=== PATIENT | female | born 1980 | race Caucasian/White ===

== ENCOUNTER 2017-12-02 09:03 | Day surgery (SDC) | payer MEDICAID ==
[2017-11-29 14:19] LABS: BASOPHILS % (AUTO) 0.4 % (0.0-2.0); EOSINOPHILS % (AUTO) 0.9 % (1.0-6.0); HEMATOCRIT 38.3 % (36-46); HEMOGLOBIN 13.1 g/dL (12.0-16.0); LYMPHOCYTES # (AUTO) 2.1 K/uL (1.0-4.8); LYMPHOCYTES % (AUTO) 23.2 % (22.0-44.0); MEAN CORPUSCULAR HEMOGLOBIN 28.1 pg (26.0-34.0); MEAN CORPUSCULAR HGB CONC 34.1 G/dL (31.0-37.0); MEAN CORPUSCULAR VOLUME 82 fL (80-100); MONOCYTES # (AUTO) 0.3 K/uL (0.1-1.0); MONOCYTES % (AUTO) 3.7 % (2.0-9.0); NEUTROPHILS # (AUTO) 6.6 K/uL (1.8-7.7); NEUTROPHILS % (AUTO) 71.8 % (40.0-70.0); PLATELET COUNT (AUTO) 217 K/uL (150-450); RED BLOOD CELL COUNT(AUTO) 4.66 MIL/uL (4.00-5.20)
[2017-11-29 14:34] LABS: ALANINE AMINOTRANSFERASE 12 U/L (12-78); ALBUMIN 3.3 g/dL (3.4-5.0); ALKALINE PHOSPHATASE 66 U/L (46-116); ANION GAP 6 mmol/L (8-16); ASPARTATE AMINOTRANSFERASE 13 U/L (15-37); BILIRUBIN,TOTAL 0.4 mg/dL (0.1-1.0); CALCIUM, TOTAL 8.2 mg/dL (8.8-10.5); CARBON DIOXIDE 27 mmol/L (22-29); CHLORIDE 105 mmol/L (98-107); CREATININE 0.76 mg/dL (0.60-1.30); GLOMERULAR FILTR. RATE CALC > 60 mL/min (>60); GLUCOSE,RANDOM 96 mg/dL (70-110); SODIUM SERUM 138 mmol/L (136-145); TOTAL PROTEIN, SERUM 6.1 g/dL (6.4-8.2); UREA NITROGEN, BLOOD 15 mg/dL (7-18)
[~2017-12-02] VITALS: Ht 172.7 cm; Wt 110.5 kg
[~2017-12-02 09:03] MED LIST: BUPIVACAINE HCL/PF 0.5% 30 ML VIAL ONE; CefoTEtan DISOD 2 GM/DEXTROSE 50 ML IV ONE; DEXTROSE IV ONE; GUM MASTIC/STORAX/MSAL/ALCOHOL LIQUID 0.67 ML VIAL TP ONE; LIDOCAINE HCL 2%/EPI 1:200,000/PF 20 ML VIAL ONE; RINGERS SOLUTION,LACTATED 1,000 ML IV ONE; SODIUM CHLORIDE 0.9% 1,000 ML IV ONE; [UNRECOGNIZED DRUG - OTHER] IV ONE
[2017-12-02] MEDS ORDERED: MIDAZOLAM HCL 2 MG/2 ML VIAL IVP ONE (09:04)
[2017-12-02] MEDS ORDERED: NEOSTIGMINE METHYLSULFATE 1 MG/ML 10 ML VIAL IVP ONE (09:04)
[2017-12-02] MEDS ORDERED: GLYCOPYRROLATE 0.2 MG/ML VIAL IM ONE (09:04)
[2017-12-02] MEDS ORDERED: ONDANSETRON HCL 4 MG/2 ML VIAL IVP ONE (09:04)
[2017-12-02] MEDS ORDERED: CefoTEtan DISODIUM 1 GM/VIAL IVP ONE (09:04)
[2017-12-02] MEDS ORDERED: ROCURONIUM BROMIDE 10 MG/ML 5 ML VIAL IVP ONE (09:04)
[2017-12-02] MEDS ORDERED: FentaNYL CITRATE-PF 100 MCG/2 ML VIAL IVP ONE (09:04)
[2017-12-02] MEDS ORDERED: PROPOFOL 1% 20 ML VIAL IVP ONE (09:04)
[2017-12-02] MEDS ORDERED: KETOROLAC TROMETHAMINE 60 MG/2 ML VIAL IM ONE (09:04)
[2017-12-02] MEDS ORDERED: LIDOCAINE HCL/PF 2% 5 ML VIAL IM ONE (09:04)
[2017-12-02] MEDS ORDERED: METOCLOPRAMIDE HCL 5 MG/ML 2 ML VIAL IVP ONE (09:04)
[2017-12-02] MEDS ORDERED: DEXAMETHASONE SOD PHOS 4 MG/ML VIAL IVP ONE (09:04)
[2017-12-02] MEDS ORDERED: CefoTEtan DISOD 2 GM/DEXTROSE 50 ML IV ONE (10:29)
[2017-12-02] MEDS ORDERED: ACETAMINOPHEN 1000 MG/ISO-OSM 100 ML IV ONE (11:06)
[2017-12-02] MEDS ORDERED: ACETAMINOPHEN 500 MG TABLET PO PRN (11:45)
[2017-12-02] MEDS ORDERED: HYDROCODONE/ACETAMINOPHEN 5-325 MG TABLET PO PRN (11:45)
[2017-12-02] MEDS ORDERED: IBUPROFEN 800 MG TABLET PO PRN (11:45)
[2017-12-02] MEDS ORDERED: FentaNYL CITRATE-PF 100 MCG/2 ML VIAL ONE ×2 (11:52→12:35)
[2017-12-02] MEDS: FentaNYL CITRATE-PF 100 MCG/2 ML VIAL IVP PRN ×3 (11:58→12:38)
[2017-12-02] MEDS ORDERED: MEPERIDINE HCL/PF 25 MG/0.5 ML AMP IVP PRN (12:00)
[2017-12-02] MEDS ORDERED: HYDROmorphone 2 MG/ML SYRINGE ONE (12:03)
[2017-12-02] MEDS: HYDROmorphone 2 MG/ML SYRINGE IVP PRN ×4 (12:04→12:54)
[2017-12-02] MEDS ORDERED: RINGERS SOLUTION,LACTATED 1,000 ML IV ONE (12:06)
[2017-12-02] MEDS ORDERED: HYDROCODONE/ACETAMINOPHEN 5-325 MG TABLET ONE (13:38)
[2017-12-02] MEDS ORDERED: OXYGEN THERAPY IH SCH (20:00)
== END 2017-12-02 14:20 | disposition home or self-care (01) ==
LOC: SURGERY 09:03
PROVIDERS: ATTEND Surgery
DX: K80.10 Calculus of gallbladder with chronic cholecystitis without obstruction (principal); M79.7 Fibromyalgia; G89.29 Other chronic pain; E66.9 Obesity, unspecified; Z90.49 Acquired absence of other specified parts of digestive tract; Z98.890 Other specified postprocedural states; Z68.37 Body mass index [BMI] 37.0-37.9, adult
CPT/HCPCS: 36415; 47562; 80053; 84703; 85025; 88304; J0131; J1100; J1170; J1885; J2250; J2405; J2704; J2765; J3010; J3490 ×6; J7030; J7120

== ENCOUNTER → 2018-02-28 | Outpatient (CLI) | payer OTHER ==
[2018-03-01 11:22] LABS: RUBEOLA (MEASLES) IGG 84.7 AU/mL (Immune >29.9)
== END | disposition home or self-care (01) ==
LOC: EMPHLTH 09:07
PROVIDERS: ATTEND Internal Medicine
DX: Z02.1 Encounter for pre-employment examination (principal)
CPT/HCPCS: 86706; 86735; 86762; 86765; 86787